=== PATIENT | female | born 1960 | race Caucasian/White ===

== ENCOUNTER 2019-05-06 09:22 | Outpatient (CLI) | payer BC ==
--- NOTE | 2019-05-06 09:45 | BD ---
EXAM: DEXA bone density examination HISTORY: 58-year-old postmenopausal female for screening COMPARISON: None FINDINGS: L1--bone mineral density 0.990 g/sq cm; T score 0.0 L2--bone mineral density 1.010 g/sq cm; T score -0.2 L3--bone mineral density 1.014 g/sq cm; T score -0.6 L4--bone mineral density 0.906 g/sq cm; T score -1.4 Total L1-L4--bone mineral density 0.976 g/sq cm; T score -0.6 Left femoral neck--bone mineral density0.691; T score -1.4 Total proximal left femur--bone mineral density 0.846; T score -0.8 IMPRESSION: Osteopenia This patient has a 10 year WHO fracture risk of a major osteoporotic fracture of 7.1% and of a hip fracture of 0.5%.
== END 2019-05-06 09:23 | disposition home or self-care (01) ==
LOC: BICMAMMO 09:22
PROVIDERS: ATTEND Family Medicine
DX: M81.0 Age-related osteoporosis without current pathological fracture (principal); M85.852 Other specified disorders of bone density and structure, left thigh
CPT/HCPCS: 77080

== ENCOUNTER 2022-04-11 16:52 | Inpatient (IN) | payer BC, SELFPAY ==
[2022-04-11 17:19] LABS: #Lymphocytes 2.2 thou/uL (1.20-3.40); #Monocytes 0.4 thou/uL (0.11-0.59); #Neutrophils 2.6 thou/uL (1.40-6.50); %Eosinophils 0.9 % (0.0-10.0); %Lymphocytes 42.3 % (21.0-51.0); %Monocytes 7.2 % (0.0-10.0); %Neutrophils 49.6 % (42.0-75.0); Hemoglobin 15.1 g/dL (12.0-16.0); Mean Corpuscular HGB CONC 33.3 g/dL (32.0-36.0); Mean Corpuscular Hemoglobin 31.5 pg (27.0-31.0); Mean Corpuscular Volume 94.9 fL (78.0-98.0); Mean Platelet Volume 6.8 fL (7.4-10.4); Platelet Count 172 thou/uL (130-400); RBC Distribution Width 14.4 % (11.5-14.5); Red Blood Cell (RBC) Count 4.78 mill/uL (4.20-5.40); White Blood Cell (WBC) Count 5.3 thou/uL (4.8-10.8)
[2022-04-11] MEDS ORDERED: Lorazepam (BATCHED) 2 MG/ML SYR ONE (17:24)
[2022-04-11 17:43] LABS: ALT (SGPT) 17 U/L (8-55); AST (SGOT) 28 U/L (5-34); Albumin 4.3 g/dL (3.5-5.0); Alkaline Phosphatase 143 U/L (40-110); Anion Gap 19 mmol/L (10-20); BUN (Urea Nitrogen) 7 mg/dL (9.8-20.1); Bilirubin, Total 0.7 mg/dL (0.2-1.2); Calc. Creatinine Clearance 0 mL/min (70-130); Carbon Dioxide 29 mmol/L (22-29); Chloride 98 mmol/L (98-107); Estimated GFR 100; Globulin 3.1 g/dL (2.4-3.5); Glucose 100 mg/dL (70-105); Lipase 39 U/L (8-78); Potassium 3.7 mmol/L (3.5-5.1); Protein, Total 7.4 g/dL (6.0-8.3); Sodium 142 mmol/L (136-145)
[2022-04-11 17:47] LABS: Bilirubin Negative (Negative); Blood, Urine Negative (Negative); Clarity Clear (Clear); Glucose, Urine (Dipstick) Normal (Negative); Ketone, Urine Negative (Negative); Leukocyte Negative Leu/uL (Negative); Nitrite Negative (Negative); Protein, Urine (Dipstick) Negative (Neg-Trace); Specific Gravity, Urine 1.004 (1.002-1.036); Urobilinogen Normal mg/dL (Less than 2)
[2022-04-11 17:57] LABS: Amphetamine Not Detected (NotDetected); Barbiturates Screen Not Detected (NotDetected); Benzodiazepine Screen Not Detected (NotDetected); Cocaine Metabolite Screen Not Detected (NotDetected); Methadone Not Detected (NotDetected); Methamphetamine Not Detected (NotDetected); Opiate Screen Not Detected (NotDetected); Oxycodone Screen Not Detected (NotDetected); Phencyclidine (PCP) Not Detected (NotDetected); THC/Cannabinoid Screen Not Detected (NotDetected); Tricyclic Screen Not Detected (NotDetected)
[2022-04-11] MEDS ORDERED: Lorazepam 2 MG/ML VIAL IM PRN (18:37)
[2022-04-11] MEDS ORDERED: Ondansetron ODT 4 MG TAB PO PRN (18:37)
[2022-04-11] MEDS ORDERED: Lorazepam 1 MG TAB PO PRN (18:37)
[2022-04-11] MEDS ORDERED: Ondansetron PF 4 MG/2 ML Vial IVP PRN (18:38)
[2022-04-11] MEDS ORDERED: Electrolyte Replacement Protocol 1 EACH FS SCH (18:45)
[2022-04-11 19:30] LABS: #Lymphocytes 1.9 thou/uL (1.20-3.40); #Monocytes 0.3 thou/uL (0.11-0.59); #Neutrophils 1.9 thou/uL (1.40-6.50); %Basophils 0.1 % (0.0-1.0); %Lymphocytes 46.1 % (21.0-51.0); %Monocytes 7.2 % (0.0-10.0); %Neutrophils 45.7 % (42.0-75.0); Hemoglobin 14.4 g/dL (12.0-16.0); Mean Corpuscular HGB CONC 33.8 g/dL (32.0-36.0); Mean Corpuscular Hemoglobin 32.6 pg (27.0-31.0); Mean Corpuscular Volume 96.3 fL (78.0-98.0); Mean Platelet Volume 6.8 fL (7.4-10.4); Platelet Count 142 thou/uL (130-400); RBC Distribution Width 14.5 % (11.5-14.5); Red Blood Cell (RBC) Count 4.42 mill/uL (4.20-5.40); White Blood Cell (WBC) Count 4.1 thou/uL (4.8-10.8)
[2022-04-11 19:39] LABS: ALT (SGPT) 14 U/L (8-55); AST (SGOT) 25 U/L (5-34); Albumin 3.8 g/dL (3.5-5.0); Alkaline Phosphatase 127 U/L (40-110); Anion Gap 17 mmol/L (10-20); BUN (Urea Nitrogen) 6 mg/dL (9.8-20.1); Bilirubin, Direct 0.3 mg/dL (0.1-0.3); Bilirubin, Total 0.7 mg/dL (0.2-1.2); Calc. Creatinine Clearance 0 mL/min (70-130); Calcium 8.2 mg/dL (7.8-10.44); Carbon Dioxide 26 mmol/L (22-29); Chloride 105 mmol/L (98-107); Estimated GFR 100; Globulin 2.6 g/dL (2.4-3.5); Glucose 95 mg/dL (70-105); Phosphorus 2.9 mg/dL (2.3-4.7); Potassium 3.7 mmol/L (3.5-5.1); Protein, Total 6.4 g/dL (6.0-8.3); Sodium 144 mmol/L (136-145)
[2022-04-11 20:38] LABS: Lactic Acid 2.7 mmol/L (0.5-2.2)
[2022-04-11 20:50] VITALS: BMI 25.1
[2022-04-11] MEDS ORDERED: Magnesium 2 GM/50 ML(in water) 2 GM in Premix Bag 1 BAG IVPB SCH (22:00)
[2022-04-11] MEDS: Thiamine HCl 200 MG/2 ML VIAL SLOW IVP SCH (22:32)
[2022-04-11] MEDS: Lorazepam 1 MG TAB PO SCH (23:37)
[2022-04-12] MEDS: Lorazepam 1 MG TAB PO SCH ×4 (00:05→17:59)
[2022-04-12 06:51] LABS: #Lymphocytes 1.2 thou/uL (1.20-3.40); #Monocytes 0.5 thou/uL (0.11-0.59); #Neutrophils 3.3 thou/uL (1.40-6.50); %Basophils 0.2 % (0.0-1.0); %Eosinophils 0.4 % (0.0-10.0); %Lymphocytes 23.7 % (21.0-51.0); %Monocytes 10.4 % (0.0-10.0); %Neutrophils 65.3 % (42.0-75.0); Hemoglobin 13.1 g/dL (12.0-16.0); Mean Corpuscular HGB CONC 33.9 g/dL (32.0-36.0); Mean Corpuscular Hemoglobin 32.7 pg (27.0-31.0); Mean Corpuscular Volume 96.4 fL (78.0-98.0); Mean Platelet Volume 6.9 fL (7.4-10.4); Platelet Count 122 thou/uL (130-400); RBC Distribution Width 14.2 % (11.5-14.5); Red Blood Cell (RBC) Count 4.01 mill/uL (4.20-5.40)
[2022-04-12 07:17] LABS: Anion Gap 15 mmol/L (10-20); BUN (Urea Nitrogen) 9 mg/dL (9.8-20.1); Calc. Creatinine Clearance 104 mL/min (70-130); Calcium 8.7 mg/dL (7.8-10.44); Carbon Dioxide 25 mmol/L (22-29); Chloride 99 mmol/L (98-107); Estimated GFR 101; Glucose 109 mg/dL (70-105); Potassium 3.3 mmol/L (3.5-5.1); Sodium 136 mmol/L (136-145)
[2022-04-12] MEDS: Magnesium Oxide 400 MG TAB PO SCH ×2 (08:01→20:06)
[2022-04-12] MEDS: Multivit, Therapeutic 1 TAB PO SCH (08:01)
[2022-04-12] MEDS: Folic Acid 1 MG TAB PO SCH (08:01)
[2022-04-12] MEDS: Potassium Chloride 20 MEQ TAB PO SCH ×2 (08:01→16:47)
[2022-04-12 10:59] LABS: Syphilis Antibody Nonreactive (Nonreactive); Syphilis Antibody Index 0.05 S/CO (<1.00 Non-Reactive)
[2022-04-12] MEDS: Sodium Chloride 0.9% 1,000 ML IV SCH (16:48)
[2022-04-12] MEDS: Thiamine HCl 200 MG/2 ML VIAL SLOW IVP SCH (18:00)
[2022-04-12] MEDS ORDERED: Lorazepam 1 MG TAB PO PRN (18:37)
[2022-04-13] MEDS: Lorazepam 1 MG TAB PO SCH ×3 (00:05→11:58)
[2022-04-13] MEDS: Sodium Chloride 0.9% 1,000 ML IV SCH ×2 (02:48→11:59)
[2022-04-13 06:29] LABS: #Lymphocytes 1.2 thou/uL (1.20-3.40); #Monocytes 0.6 thou/uL (0.11-0.59); %Basophils 0.1 % (0.0-1.0); %Eosinophils 0.6 % (0.0-10.0); %Monocytes 8.1 % (0.0-10.0); %Neutrophils 73.2 % (42.0-75.0); Hemoglobin 14.3 g/dL (12.0-16.0); Mean Corpuscular HGB CONC 33.8 g/dL (32.0-36.0); Mean Corpuscular Hemoglobin 32.8 pg (27.0-31.0); Mean Corpuscular Volume 97.1 fL (78.0-98.0); Mean Platelet Volume 7.6 fL (7.4-10.4); Platelet Count 107 thou/uL (130-400); RBC Distribution Width 14.5 % (11.5-14.5); Red Blood Cell (RBC) Count 4.35 mill/uL (4.20-5.40); White Blood Cell (WBC) Count 6.8 thou/uL (4.8-10.8)
[2022-04-13 06:46] LABS: Anion Gap 14 mmol/L (10-20); BUN (Urea Nitrogen) 6 mg/dL (9.8-20.1); Calc. Creatinine Clearance 107 mL/min (70-130); Calcium 8.7 mg/dL (7.8-10.44); Carbon Dioxide 22 mmol/L (22-29); Chloride 104 mmol/L (98-107); Estimated GFR 102; Glucose 111 mg/dL (70-105); Magnesium 1.8 mg/dL (1.6-2.6); Potassium 3.7 mmol/L (3.5-5.1); Sodium 136 mmol/L (136-145)
[2022-04-13] MEDS ORDERED: Magnesium 2 GM/50 ML(in water) 2 GM in Premix Bag 1 BAG IVPB SCH (08:00)
[2022-04-13] MEDS: Potassium Chloride 20 MEQ TAB PO SCH ×2 (08:39→17:42)
[2022-04-13] MEDS: Folic Acid 1 MG TAB PO SCH (08:39)
[2022-04-13] MEDS: Magnesium Oxide 400 MG TAB PO SCH ×2 (08:40→21:25)
[2022-04-13] MEDS: Multivit, Therapeutic 1 TAB PO SCH (08:40)
[2022-04-13] MEDS ORDERED: busPIRone HCl 5 MG TAB PO PRN (12:16)
[2022-04-13] MEDS ORDERED: Loperamide HCl 1 MG/7.5 ML UDCUP PO PRN (13:12)
[2022-04-13] MEDS: chlordiazePOXIDE HCl 25 MG CAP PO SCH ×2 (14:01→21:26)
[2022-04-13] MEDS: Cephalexin 250 MG/5 ML Oral Suspension PO SCH ×2 (17:41→22:23)
[2022-04-13] MEDS: Thiamine HCl 200 MG/2 ML VIAL SLOW IVP SCH (17:45)
[2022-04-13] MEDS ORDERED: Lorazepam 1 MG TAB PO PRN (18:37)
[2022-04-13] MEDS ORDERED: Lorazepam 0.5 MG TAB PO SCH (18:45)
[2022-04-13] MEDS ORDERED: traZODone HCl 50 MG TAB PO SCH (21:00)
[2022-04-13] MEDS ORDERED: Non-Formulary Item 1 EACH (Trazodone Hcl [Trazodone Hcl] 100 MG Tablet) PO SCH (21:00)
[2022-04-14 06:48] LABS: #Eosinphils 0.1 thou/uL (0.0-0.7); #Lymphocytes 1.4 thou/uL (1.20-3.40); #Monocytes 0.6 thou/uL (0.11-0.59); #Neutrophils 3.5 thou/uL (1.40-6.50); %Basophils 0.5 % (0.0-1.0); %Eosinophils 2.2 % (0.0-10.0); %Lymphocytes 25.2 % (21.0-51.0); %Neutrophils 62.2 % (42.0-75.0); Hemoglobin 14.3 g/dL (12.0-16.0); Mean Corpuscular Hemoglobin 32.4 pg (27.0-31.0); Mean Corpuscular Volume 98.3 fL (78.0-98.0); Mean Platelet Volume 7.5 fL (7.4-10.4); Platelet Count 110 thou/uL (130-400); RBC Distribution Width 14.7 % (11.5-14.5); Red Blood Cell (RBC) Count 4.41 mill/uL (4.20-5.40); White Blood Cell (WBC) Count 5.6 thou/uL (4.8-10.8)
[2022-04-14 07:08] LABS: ALT (SGPT) 19 U/L (8-55); AST (SGOT) 28 U/L (5-34); Albumin 3.6 g/dL (3.5-5.0); Alkaline Phosphatase 119 U/L (40-110); Anion Gap 12 mmol/L (10-20); BUN (Urea Nitrogen) 13 mg/dL (9.8-20.1); Bilirubin, Total 1.2 mg/dL (0.2-1.2); Calc. Creatinine Clearance 82 mL/min (70-130); Calcium 9.2 mg/dL (7.8-10.44); Carbon Dioxide 26 mmol/L (22-29); Cardiac Risk 1.6 (Less than 4.5); Chloride 109 mmol/L (98-107); Cholesterol 189 mg/dl (< 200 Desired); Estimated GFR 82; Globulin 2.8 g/dL (2.4-3.5); Glucose 94 mg/dL (70-105); HDL Cholesterol 119 mg/dL (>60 Neg Risk); LDL Cholesterol, Calculated 57 mg/dL; Magnesium 2.2 mg/dL (1.6-2.6); Potassium 4.7 mmol/L (3.5-5.1); Protein, Total 6.4 g/dL (6.0-8.3); Sodium 142 mmol/L (136-145); Triglycerides 67 mg/dL (Less than 150)
[2022-04-14] MEDS: Potassium Chloride 20 MEQ TAB PO SCH (08:45)
[2022-04-14] MEDS: Cephalexin 250 MG/5 ML Oral Suspension PO SCH (08:46)
[2022-04-14] MEDS: chlordiazePOXIDE HCl 25 MG CAP PO SCH (08:47)
[2022-04-14] MEDS: Folic Acid 1 MG TAB PO SCH (08:47)
[2022-04-14] MEDS: Magnesium Oxide 400 MG TAB PO SCH (08:48)
[2022-04-14] MEDS: Multivit, Therapeutic 1 TAB PO SCH (08:48)
[2022-04-14] MEDS ORDERED: Escitalopram Oxalate 20 mg Tablet PO SCH (09:00)
[2022-04-14] MEDS ORDERED: Triamterene/Hydrochlorothiazide 37.5 mg/25 mg Tablet PO SCH (09:00)
[2022-04-14] MEDS ORDERED: Non-Formulary Item 1 EACH (Triamterene/Hydrochlorothiazid [Triamterene-Hctz 37.5-25 Mg Cp PO SCH (09:00)
[2022-04-14 13:38] VITALS: BP 120/80; TEMP 98.5
[2022-04-14] MEDS ORDERED: Lorazepam 0.5 MG TAB PO PRN (18:37)
[2022-04-14] MEDS ORDERED: Thiamine 100 MG TAB PO SCH (18:45)
== END 2022-04-14 12:56 | disposition home or self-care (01) | DRG 897 ==
LOC: ERS 16:52 → T4-B 18:36 → INTOOBSV 18:36 → OBSVTOIN 04-14 09:34
PROVIDERS: ADMIT Family Medicine; ATTEND Family Medicine
PROC: HZ2ZZZZ Detoxification Services for Substance Abuse Treatment (ICD-10-PCS; principal; 2022-04-14)
DX: F10.239 Alcohol dependence with withdrawal, unspecified (principal); Y90.8 Blood alcohol level of 240 mg/100 ml or more; Z20.822 Contact with and (suspected) exposure to COVID-19; F41.9 Anxiety disorder, unspecified; R10.11 Right upper quadrant pain; F10.229 Alcohol dependence with intoxication, unspecified; F10.251 Alcohol dependence with alcohol-induced psychotic disorder with hallucinations; H00.016 Hordeolum externum left eye, unspecified eyelid; H00.013 Hordeolum externum right eye, unspecified eyelid; M79.89 Other specified soft tissue disorders
CPT/HCPCS: 36415; 80048; 80053; 80061; 80306; 80307; 81003; 82248; 83605; 83690; 83735; 84100; 85025; 86780; 93005; 93010; 96374; J2060; J3411; J3475; J7050; Q0162; U0003; U0005